=== PATIENT | male | born 1960 | race Caucasian/White ===

== ENCOUNTER 2020-04-04 11:55 | Emergency (ER) | payer OTHER ==
[~2020-04-04] VITALS: Ht 167.6 cm; Wt 102.1 kg
--- NOTE | 2020-04-04 12:00 | NUR ---
Dr Medeiros at the bedside for MSE.
--- NOTE | 2020-04-04 12:37 | NUR ---
Pt back from X Ray, resting in bed. No C/O pain at this time.
--- NOTE | 2020-04-04 12:56 | NUR ---
Pt resting in bed, awaiting for family to pick him up.
[2020-04-04 12:59] VITALS: BP 133/76
--- NOTE | 2020-04-04 13:24 | NUR ---
Patient discharged to home in stable condition. Written and verbal after care instructions given. Patient verbalizes understanding of instructions. Stressed follow up or return to ER for worsening s/s.
== END 2020-04-04 13:24 | disposition home or self-care (01) ==
LOC: ER 11:55
DX: R07.9 Chest pain, unspecified (principal); S00.33XA Contusion of nose, initial encounter; S20.212A Contusion of left front wall of thorax, initial encounter; V48.5XXA Car driver injured in noncollision transport accident in traffic accident, initial encounter; Y92.411 Interstate highway as the place of occurrence of the external cause; M79.642 Pain in left hand; I10 Essential (primary) hypertension; Z79.899 Other long term (current) drug therapy
CPT/HCPCS: 70160; 71101; 73130; A4663